=== PATIENT | female | born 1970 | race Caucasian/White ===

== ENCOUNTER 2019-03-13 15:49 | Inpatient (IN) | payer OTHER ==
[~2019-03-13] VITALS: Ht 157.5 cm; Wt 65.8 kg
[2019-03-27] MEDS ORDERED: SYNTHROID112 MCG PO (10:26)
[2019-03-27 11:05] LABS: BASOPHILS 0.2 % (0-2); EOSINOPHILS 1.7 % (0-7); HEMATOCRIT 42.4 % (36.0-48.0); HEMOGLOBIN 14.2 g/dL (12-16); IMMATURE GRANULOCYTES 0.2 % (0-5); LYMPHOCYTES 29.9 % (15-50); MCH 32.6 pg (26.0-34.0); MCHC 33.5 g/dL (31.0-37.0); MCV 97.2 fL (80.0-100.0); MEAN PLATELET VOLUME 9.8 fL (7.4-10.4); MONOCYTES 5.7 % (2-11); NEUTROPHILS 62.3 % (40-80); PLATELET COUNT 395 10x3/uL (130-400); RBC 4.36 10x6/uL (4.00-5.40); RDW 14.8 % (11.5-14.5); WBC 9.9 10x3/uL (4.8-10.8)
[2019-03-27 11:13] LABS: ANION GAP 10.4 mmol/L (8-16); CALCIUM 9.4 mg/dL (8.5-10.1); CARBON DIOXIDE 29.5 mmol/L (21.0-32.0); CREATININE - SERUM 0.9 mg/dL (0.6-1.3); POTASSIUM - SERUM 3.9 mmol/L (3.5-5.1)
[2019-03-28 07:42] VITALS: BP 168/100; BMI 25.3
--- NOTE | 2019-03-28 13:15 | NUR ---
1300 SPB >190 DR BARLOW NOTIFIED. ORDERS RECIEVED FOR PHENERGAN TO AID IN PAIN CONTROL
[2019-03-28 13:40] VITALS: BP 188/88
--- NOTE | 2019-03-28 13:42 | NUR ---
RECEIVED PATIENT FROM RECOVERY. SLIGHTLY DROWSY, RESPONDS TO VERBAL STIMULI. NO C/O PAIN. NO S/S OF ACUTE DISTRESS NOTED. MIDLINE INCISION, DRESSING C/D/I. IV TO RIGHT AC, SL. SITE PATENT WITHOUT REDNESS OR SWELLING. DENIES ANY NEEDS AT THIS TIME. CALL LIGHT IN REACH. WILL CONTINUE TO MONITOR.
[2019-03-28 16:53] VITALS: BP 182/93
--- NOTE | 2019-03-28 18:19 | NUR ---
ALERT AND ORIENTED, SITTING UP IN BED. NO C/O PAIN, DILAUDID DAMASCENER MANAGING PAIN AT THIS TIME. NO S/S OF ACUTE DISTRESS NOTED. DENIES ANY NEEDS AT THIS TIME. FAMILY AT BEDSIDE. CALL LIGHT IN REACH. WILL CONTINUE TO MONITOR.
[2019-03-28 19:15] VITALS: BP 188/88; BMI 26.6
[2019-03-28 20:48] VITALS: BP 128/87
--- NOTE | 2019-03-28 20:50 | NUR ---
A&O X 4. MIDLINE ABDOMINAL INCISION C/D/I. LAP SITE TO UPPER AND LOWER RIGHT SIDE OF ABDOMEN C/D/I. REPORTS ELEVATED PAIN AT THIS TIME. SHANKAR CATHETER IN PLACE WITH CLEAR YELLOW URINE. PT WOULD LIKE IT NOTED THAT ALL TIMES IN THE PAST THAT SHE HAD A CATHETER, SHE DID HAVE DIFFICULTY URINATING AFTERWORDS. WILL PASS IN REPORT. DENIES FURTHER NEEDS AT THIS TIME, WILL CONTINUE TO MONITOR.
[2019-03-29 00:59] VITALS: BP 140/81
--- NOTE | 2019-03-29 03:57 | NUR ---
I have reviewed this patient and I concur with the Shift Assessment completed by the Licensed Practical Nurse today this shift.
[2019-03-29 05:12] VITALS: BP 152/88
[2019-03-29 06:12] LABS: BASOPHILS 0.1 % (0-2); EOSINOPHILS 0.2 % (0-7); HEMATOCRIT 35.9 % (36.0-48.0); IMMATURE GRANULOCYTES 0.2 % (0-5); LYMPHOCYTES 23.6 % (15-50); MCH 31.2 pg (26.0-34.0); MCHC 31.5 g/dL (31.0-37.0); MEAN PLATELET VOLUME 10.1 fL (7.4-10.4); MONOCYTES 13.3 % (2-11); NEUTROPHILS 62.6 % (40-80); PLATELET COUNT 384 10x3/uL (130-400); RBC 3.62 10x6/uL (4.00-5.40); WBC 9.5 10x3/uL (4.8-10.8)
[2019-03-29 06:30] LABS: CALC OSMOLALITY 281 mosm/kg (275-300); CALCIUM 8.4 mg/dL (8.5-10.1); CARBON DIOXIDE 30.3 mmol/L (21.0-32.0); CHLORIDE - SERUM 108 mmol/L (98-107); CREATININE - SERUM 0.8 mg/dL (0.6-1.3); GLUCOSE 117 mg/dL (74-106); POTASSIUM - SERUM 3.5 mmol/L (3.5-5.1); SODIUM 142 mmol/L (136-145); UREA NITROGEN 8 mg/dL (7-18); eGFR NON AFRICAN AMERICAN 81 mL/min (90-120)
[2019-03-29 07:00] LABS: HEMOGLOBIN 11.3 g/dL (12-16); MCV 99.2 fL (80.0-100.0)
--- NOTE | 2019-03-29 08:00 | NUR ---
ASSESSMENT PER FLOW SHEET. PT IS WITHOUT DISTRESS.MONITOR FOR NEEDS.
[2019-03-29 08:37] VITALS: BP 142/87
[2019-03-29 11:59] VITALS: BP 124/76
[2019-03-29 12:46] VITALS: Ht 157.5 cm; Wt 65.8 kg
--- NOTE | 2019-03-29 13:05 | NUR ---
SHANKAR CATHETER DC ORDERED, CATH TIP INTACT. 450CC OF CAMI COLORED URINE EMPTIED FROM SHANKAR BAG.PT TOLERATED WELL
[2019-03-29 16:23] VITALS: BP 155/87
--- NOTE | 2019-03-29 18:16 | NUR ---
PT HAS VOIDED SMALL AMOUNT OF URINE IN COMMODE. HAT PLACED TO MEASURE.
--- NOTE | 2019-03-29 18:35 | NUR ---
REMAINS WITHOUT NEEDS,WITHOUT CHANGE.CONT PLAN OF CARE
[2019-03-29 21:12] VITALS: BP 139/73
--- NOTE | 2019-03-30 00:30 | NUR ---
A&O X 4. PT REPORTS DIFFICULTY URINATING AND PRESSURE PAIN TO BLADDER. BLADDER SCAN READS 387ML. IN&OUT CATH PERFORMED BY RN, 500ML CLEAR YELLOW URINE EMPTIED. PT REPORTS SOME RELIEF. INFORMED OF NEED TO VOID WITHIN 6-8 HOURS AND NOT TO STRAIN WHILE TOILETING. PT VERBALIZED UNDERSTANDING.
[2019-03-30 01:47] VITALS: BP 151/86
--- NOTE | 2019-03-30 02:41 | NUR ---
I have reviewed this patient and I concur with the Shift Assessment completed by the Licensed Practical Nurse today this shift.
[2019-03-30 06:22] VITALS: BP 126/67
[2019-03-30 06:48] LABS: CALC OSMOLALITY 276 mosm/kg (275-300); CALCIUM 8.2 mg/dL (8.5-10.1); CARBON DIOXIDE 24.6 mmol/L (21.0-32.0); CHLORIDE - SERUM 107 mmol/L (98-107); CREATININE - SERUM 0.7 mg/dL (0.6-1.3); POTASSIUM - SERUM 3.5 mmol/L (3.5-5.1); SODIUM 141 mmol/L (136-145); UREA NITROGEN 7 mg/dL (7-18); eGFR NON AFRICAN AMERICAN > 90 mL/min (90-120)
[2019-03-30 06:50] LABS: BASOPHILS 0.2 % (0-2); EOSINOPHILS 2.9 % (0-7); IMMATURE GRANULOCYTES 0.2 % (0-5); MCH 31.5 pg (26.0-34.0); MCHC 31.7 g/dL (31.0-37.0); MCV 99.3 fL (80.0-100.0); MEAN PLATELET VOLUME 10.1 fL (7.4-10.4); MONOCYTES 11.3 % (2-11); NEUTROPHILS 67.4 % (40-80); RDW 14.7 % (11.5-14.5); WBC 10.5 10x3/uL (4.8-10.8)
[2019-03-30 06:52] LABS: HEMATOCRIT 28.4 % (36.0-48.0); PLATELET COUNT 275 10x3/uL (130-400); RBC 2.86 10x6/uL (4.00-5.40)
[2019-03-30 06:54] LABS: GLUCOSE 62 mg/dL (74-106)
[2019-03-30 08:42] VITALS: BP 146/74
--- NOTE | 2019-03-30 11:07 | NUR ---
AMBULATING IN HALLS WITHOUT DISTRESS.
[2019-03-30 13:23] VITALS: BP 150/82
--- NOTE | 2019-03-30 14:53 | MORECARE ---
CASE MANAGEMENT DISCHARGE SUMMARY PATIENT: KIMBERLEY WEISS UNIT: [id number] ADM DATE: 03/28/19 AGE: 48 : 71 SEX: F ROOM/BED: D.2226 AUTHOR: FRANKLIN SHAFFER PHYSICIAN: REFERRING PHYSICIAN: PEDRO ROCHA MD DATE OF SERVICE: 03/30/19 Discharge Plan Patient Name: KIMBERLEY WEISS [facility] [facility] 1970 Planned Disposition: Home Anticipated Discharge Date: 03/31/19 Discharge Date: Expected LOS: 3 Initial Reviewer: [email or web address] Initial Review Date: 03/30/2019 Generated: 03/30/19 3:52 pm DCPIA - Discharge Planning Initial Assessment Updated by [email or web address]: Estefania Lindsey on 03/30/19 2:52 pm * Is the patient Alert and Oriented? Yes * How many steps to enter\exit or inside your home? 5-6/0 * PCP Dr. Brown in [place] * Preadmission Environment Home with Family * ADLs Independent * Equipment None * List name and contact numbers for known caregivers / representatives who currently or will assist patient after discharge: Fareed Weiss - spouse - [phone] * Verbal permission to speak to the caregivers and representatives has been obtained from the patient. Yes * Community resources currently utilized None * Additional services required to return to the preadmission environment? No * Can the patient safely return to the preadmission environment? Yes * Has this patient been hospitalized within the prior 30 days at any hospital? No Patient Name: KIMBERLEY WEISS Page [phone] at 1453 All edits/amendments must be made on the electronic document DICTATION DATE: 03/30/191452 SURGICAL NURSE: ANNA 03/30/191452 RPT#: [id number] DC DATE: STATUS: ADM IN [facility] [address] [place] [address] END OF REPORT
--- NOTE | 2019-03-30 15:00 | MORECARE ---
CASE MANAGEMENT DISCHARGE SUMMARY PATIENT: KIMBERLEY WEISS UNIT: [id number] ADM DATE: 03/28/19 AGE: 48 : 71 SEX: F ROOM/BED: D.2226 AUTHOR: FRANKLIN SHAFFER PHYSICIAN: REFERRING PHYSICIAN: PEDRO ROCHA MD DATE OF SERVICE: 03/30/19 Discharge Plan Patient Name: KIMBERLEY WEISS Facility: [facility]:[place] : 1970 Planned Disposition: Home Anticipated Discharge Date: 03/31/19 Discharge Date: Expected LOS: 3 Initial Reviewer: [email or web address] Initial Review Date: 03/30/2019 Generated: 03/30/19 4:00 pm Comments DCP- Discharge Planning Updated by [email or web address]: Estefania Lindsey on 03/30/19 1:[address] Patient Name: KIMBERLEY WEISS Admission Status: Elective Accout number: [id number] Admission Date: 03-28-2019 : 1970 Admission Diagnosis: Attending: PEDRO ROCHA Current LOS: 2 Anticipated DC Date: 03-31-2019 Planned Disposition: Home [facility] Discharge Planning Comments: CM met with patient to complete initial dc planning assessment. CM educated patient on the CM role and verbal consent given by patient to complete assessment. Patient lives at home with her spouse and 22 year old daughter and 20 year old son. At discharge patient plans to return and feels this is a safe discharge. She states her mother in law also lives close by and will be assisting her at home. CM discussed availability of home health, rehab services, and medical equipment. Patient denied known discharge needs at this time. States her will drive her home on discharge. CM will continue to follow and will assist as needed with dc plans/needs. Geometry Tutor: Estefania Lindsey DCPIA - Discharge Planning Initial Assessment Updated by [email or web address]: Estefania Lindsey on 03/30/19 2:52 pm * Is the patient Alert and Oriented? Yes * How many steps to enter\exit or inside your home? 5-6/0 * PCP Dr. Brown in [place] * Preadmission Environment Home with Family * ADLs Independent * Equipment None * List name and contact numbers for known caregivers / representatives who currently or will assist patient after discharge: Fareed Weiss - spouse - [phone] * Verbal permission to speak to the caregivers and representatives has been obtained from the patient. Yes * Community resources currently utilized None * Additional services required to return to the preadmission environment? No * Can the patient safely return to the preadmission environment? Yes * Has this patient been hospitalized within the prior 30 days at any hospital? No Last DP export: 03/30/19 1:53 Patient Name: KIMBERLEY WEISS Page 66611 at 1500 All edits/amendments must be made on the electronic document DICTATION DATE: 03/30/191499 WALNUT DEHYDRATOR OPERATOR: ANNA 03/30/191499 RPT#: [id number] DC DATE: STATUS: ADM IN [facility] [address] [place] [address] END OF REPORT
[2019-03-30 16:45] VITALS: BP 150/80
--- NOTE | 2019-03-30 19:19 | NUR ---
HAS AMBULATED MULTIPLE LAPS IN [place] TODAY. TOLERTING CLD WITHOUT NAUSE.SHE IS WITHOUT CHANGE FROM INTITIAL SHIFT ASSESSMENT.CONT PLAN OF CARE
[2019-03-30 21:23] VITALS: BP 140/74
--- NOTE | 2019-03-30 23:09 | NUR ---
A/O WITH NO SIGNS OF ACUTE DISTRESS. IV TO THE RT AC WITH NO REDNESS OR SWELLING. PT REPORTS THAT SHE HAD A YELLOW LIQUID BM. REPORTS THAT SHE IS TOLERATING LIQUID DIET. DENIES NEEDS AT THIS TIME. CONTINUE PLAN OF CARE.
[2019-03-31 01:02] VITALS: BP 133/59
[2019-03-31 05:08] VITALS: BP 124/70
[2019-03-31 05:10] LABS: BASOPHILS 0.1 % (0-2); EOSINOPHILS 4.9 % (0-7); HEMATOCRIT 23.1 % (36.0-48.0); HEMOGLOBIN 7.8 g/dL (12-16); IMMATURE GRANULOCYTES 0.3 % (0-5); LYMPHOCYTES 24.6 % (15-50); MCH 32.8 pg (26.0-34.0); MCHC 33.8 g/dL (31.0-37.0); MEAN PLATELET VOLUME 9.9 fL (7.4-10.4); MONOCYTES 10.7 % (2-11); NEUTROPHILS 59.4 % (40-80); PLATELET COUNT 234 10x3/uL (130-400); RBC 2.38 10x6/uL (4.00-5.40); RDW 14.6 % (11.5-14.5)
[2019-03-31 05:17] LABS: WBC 7.1 10x3/uL (4.8-10.8)
[2019-03-31 05:18] LABS: MCV 97.1 fL (80.0-100.0)
[2019-03-31 05:33] LABS: CALC OSMOLALITY 276 mosm/kg (275-300); CALCIUM 7.9 mg/dL (8.5-10.1); CARBON DIOXIDE 26.4 mmol/L (21.0-32.0); CHLORIDE - SERUM 110 mmol/L (98-107); CREATININE - SERUM 0.7 mg/dL (0.6-1.3); GLUCOSE 81 mg/dL (74-106); POTASSIUM - SERUM 3.1 mmol/L (3.5-5.1); SODIUM 141 mmol/L (136-145); eGFR NON AFRICAN AMERICAN > 90 mL/min (90-120)
[2019-03-31 05:39] LABS: UREA NITROGEN 3 mg/dL (7-18)
--- NOTE | 2019-03-31 07:30 | NUR ---
AWAKE AND ALERT. ORIENTED X3. NO C/O AT THIS TIME. LUNGS ARE CLEAR BILATERALLY, NO COUGH NOTED. SKIN IS INTACT WITHOUT REDNESS, EXCEPT MID ABDOMINAL INCISION AND 2 LAP SITES WHICH ARE CLEAN AND DRY WITHOUT SIGNS OF INFECTION. IV TO RIGHT AC IS SWOLLEN. D/C WITH CATHETER INTACT. RESITED TO LEFT WRIST AFTER 3 ATTEMPTS WITH 20G. AMBULATED 250 FEET IN HALLWAY THIS AM. DENIES NEEDS.
--- NOTE | 2019-03-31 07:51 | NUR ---
20 gauge IV STARTED IN THE LEFT WRIST X 1 STICK. + FLASH, FLUSHED WITH NS WITHOUT ANY DIFFICULTY SECURED WITH TEGADERM AND TAPE. SWAB CAP ON. WAYLON GIRON NOTIFIED
[2019-03-31 07:59] VITALS: BP 155/96
[2019-03-31 11:35] VITALS: BP 141/79
[2019-03-31] MEDS ORDERED: DILAUDID2 MG PO (13:17)
[2019-03-31 13:42] LABS: HEMOGLOBIN 9.2 g/dL (12-16)
[2019-03-31 13:43] LABS: HEMATOCRIT 27.9 % (36.0-48.0)
--- NOTE | 2019-03-31 16:30 | NUR ---
DR ROCHA CALLED AND SAID PATIENT COULD GO HOME.
--- NOTE | 2019-03-31 16:51 | MORECARE ---
CASE MANAGEMENT DISCHARGE SUMMARY PATIENT: KIMBERLEY WEISS UNIT: [id number] ADM DATE: 03/28/19 AGE: 48 : 72 SEX: F ROOM/BED: D.2226 AUTHOR: FRANKLIN SHAFFER PHYSICIAN: REFERRING PHYSICIAN: PEDRO ROCHA MD DATE OF SERVICE: 03/31/19 Discharge Plan Patient Name: KIMBERLEY WEISS Facility: [facility]:[place] : 1970 Planned Disposition: Home Anticipated Discharge Date: 03/31/19 Discharge Date: Expected LOS: 3 Initial Reviewer: [email or web address] Initial Review Date: 03/30/2019 Generated: 03/31/19 5:50 pm Comments DCP- Discharge Planning Updated by [email or web address]: Estefania Lindsey on 03/31/19 3:[address] Patient Name: KIMBERLEY WEISS Encounter No: [id number] : 1970 Primary Insurance: [facility] [employer] Anticipated DC Date: 03-31-2019 Planned Disposition: Home External Planned Provider: : DCP follow-up note: Patient and family in agreement with discharge plan. No changes to plan. Case management will follow and assist as needed. Estefania Lindsey DCP- Discharge Planning Updated by [email or web address]: Estefania Lindsey on 03/30/19 1:[address] Patient Name: KIMBERLEY WEISS Admission Status: Elective Accout number: [id number] Admission Date: 03-28-2019 : 1970 Admission Diagnosis: Attending: PEDRO ROCHA Current LOS: 2 Anticipated DC Date: 03-31-2019 Planned Disposition: Home Primary Insurance: [facility] [facility] Discharge Planning Comments: CM met with patient to complete initial dc planning assessment. CM educated patient on the CM role and verbal consent given by patient to complete assessment. Patient lives at home with her spouse and 22 year old daughter and 20 year old son. At discharge patient plans to return and feels this is a safe discharge. She states her mother in law also lives close by and will be assisting her at home. CM discussed availability of home health, rehab services, and medical equipment. Patient denied known discharge needs at this time. States her will drive her home on discharge. CM will continue to follow and will assist as needed with dc plans/needs. Entry Level Manager: Estefania Rosalia DCPIA - Discharge Planning Initial Assessment Updated by [email or web address]: Estefania Lindsey on 03/30/19 2:52 pm * Is the patient Alert and Oriented? Yes * How many steps to enter\exit or inside your home? 5-6/0 * PCP Dr. Brown in [place] * Preadmission Environment Home with Family * ADLs Independent * Equipment None * List name and contact numbers for known caregivers / representatives who currently or will assist patient after discharge: Fareed Weiss - spouse - [phone] * Verbal permission to speak to the caregivers and representatives has been obtained from the patient. Yes * Community resources currently utilized None * Additional services required to return to the preadmission environment? No * Can the patient safely return to the preadmission environment? Yes * Has this patient been hospitalized within the prior 30 days at any hospital? No Last DP export: 03/30/19 2:00 Patient Name: KIMBERLEY WEISS Page [phone] at 1651 All edits/amendments must be made on the electronic document DICTATION DATE: 03/31/191649 WINDOWS INFRASTRUCTURE ENGINEER: ANNA 03/31/191649 RPT#: [id number] DC DATE: STATUS: ADM IN [facility] [address] [place] [address] END OF REPORT
--- NOTE | 2019-03-31 17:00 | NUR ---
REQUESTED AND GIVEN ONE DILAUDID PO FOR C/O ABDOMINAL PAIN LEVEL 7 FOR THE TRIP HOME. DISCHARGE INSTRUCTIONS GIVEN BOTH VERBALLY AND WRITTEN. ALL QUESTIONS ANSWERED. PATIENT AND VERBALIZED UNDERSTANDING OF SAME. NEEDED PRESCRIPTIONS GIVEN TO PATIENT. SL TO LEFT WRIST D/C WITH CATHETER INTACT. ALL BELONGINGS WITH PATIENT.
--- NOTE | 2019-04-01 15:25 | MORECARE ---
CASE MANAGEMENT DISCHARGE SUMMARY PATIENT: KIMBERLEY WEISS UNIT: [id number] ADM DATE: 03/28/19 AGE: 48 : 72 SEX: F ROOM/BED: D.2226 AUTHOR: FRANKLIN SHAFFER PHYSICIAN: REFERRING PHYSICIAN: PEDRO ROCHA MD DATE OF SERVICE: 04/01/19 Discharge Plan Patient Name: KIMBERLEY WEISS Facility: [facility]:[place] : 1970 Planned Disposition: Home Anticipated Discharge Date: 03/31/19 Discharge Date: 03/31/2019 Expected LOS: 3 Initial Reviewer: [email or web address] Initial Review Date: 03/30/2019 Generated: 04/01/19 4:25 pm Comments DCP- Discharge Planning Updated by [email or web address]: Estefania Lindsey on 03/31/19 3:[address] Patient Name: KIMBERLEY WEISS Encounter No: [id number] : 1970 Primary Insurance: [facility] [employer] Anticipated DC Date: 03-31-2019 Planned Disposition: Home External Planned Provider: : DCP follow-up note: Patient and family in agreement with discharge plan. No changes to plan. Case management will follow and assist as needed. Estefania Rosalia DCP- Discharge Planning Updated by [email or web address]: Estefania Lindsey on 03/30/19 1:[address] Patient Name: KIMBERLEY WEISS Admission Status: Elective Accout number: [id number] Admission Date: 03-28-2019 : 1970 Admission Diagnosis: Attending: PEDRO ROCHA Current LOS: 2 Anticipated DC Date: 03-31-2019 Planned Disposition: Home Primary Insurance: [employer] Discharge Planning Comments: CM met with patient to complete initial dc planning assessment. CM educated patient on the CM role and verbal consent given by patient to complete assessment. Patient lives at home with her spouse and 22 year old daughter and 20 year old son. At discharge patient plans to return and feels this is a safe discharge. She states her mother in law also lives close by and will be assisting her at home. CM discussed availability of home health, rehab services, and medical equipment. Patient denied known discharge needs at this time. States her will drive her home on discharge. CM will continue to follow and will assist as needed with dc plans/needs. Tie Fastener: Estefania Lindsey DCPIA - Discharge Planning Initial Assessment Updated by [email or web address]: Estefania Lindsey on 03/30/19 2:52 pm * Is the patient Alert and Oriented? Yes * How many steps to enter\exit or inside your home? 5-6/0 * PCP Dr. Brown in [place] * Preadmission Environment Home with Family * ADLs Independent * Equipment None * List name and contact numbers for known caregivers / representatives who currently or will assist patient after discharge: Fareed Weiss - spouse - [phone] * Verbal permission to speak to the caregivers and representatives has been obtained from the patient. Yes * Community resources currently utilized None * Additional services required to return to the preadmission environment? No * Can the patient safely return to the preadmission environment? Yes * Has this patient been hospitalized within the prior 30 days at any hospital? No Last DP export: 03/31/19 3:51 Patient Name: KIMBERLEY WEISS Page [phone] at 1525 All edits/amendments must be made on the electronic document DICTATION DATE: 04/01/191524 [employer] UNIT FEEDER: ANNA 04/01/191524 RPT#: [id number] DC DATE:03/31/19 STATUS: DIS IN [facility] [address] [place] [address] END OF REPORT
--- NOTE | 2019-04-11 13:37 | OP ---
PATIENT NAME: KIMBERLEY TREJO MEDICAL RECORD: [id number] :72 LOCATION:[id number] ADMISSION DATE:03/28/19 SURGEON: PERRY ROCHA MD DATE OF OPERATION: 03/28/2019 PREOPERATIVE DIAGNOSES: 1. Recurrent diverticulitis. 2. Hyperthyroidism. POSTOPERATIVE DIAGNOSES: 1. Recurrent diverticulitis. 2. Hyperthyroidism. PROCEDURE: Hand-assisted laparoscopic sigmoid colectomy. SURGEON: Perry Rocha MD REPORT OF PROCEDURE: The patient's abdomen was prepped and draped in sterile fashion. A skin incision was made in the midline just above the pubic bone. Electrocautery was used to dissect through the subcutaneous tissues and we entered the abdominal cavity. Once inside, I took down some adhesions of the omentum to the anterior abdominal wall and then inserted a Gelport with a 5-mm trocar within it. With this in place, we were able to place a 5-mm trocar in the right lateral abdomen and a 12-mm trocar just anterior to the right anterior superior iliac crest. The patient had some inflammatory changes present that appeared to be chronic in nature, mainly in the rectosigmoid junction. We began our dissection by taking down these adhesions mainly on the left side of the pelvis and began to rotate that bowel superiorly and out of the pelvis. We then extended our dissection up the left side of the patient's colon, and eventually mobilizing the splenic flexure. As we were able to mobilize this colon medially by taking down the white line of Toldt, we were able to grasp this colon extended superiorly and take down any adhesions down in the pelvis. Once we did this, we were able to pass a conglomerate of really inflamed chronic type tissue of the proximal rectum and distal sigmoid colon. Once we got distal to this, the rectum appeared to be normal. We made a window at the base of the mesorectum and was able to transect the proximal rectum with a 60 blue load Endo-AUREA stapler. The mesentery was then taken down with sequential fires of a 60 white load Endo-AUREA stapler. We could see the patient's left ureter and it was not compromised during this case. We then eviscerated this section of the sigmoid and proximal rectum through the wound protector. We took down the mesentery with sequential clamp and tie technique with 3-0 silks. The colon was then transected on the proximal sigmoid using electrocautery and the sigmoid colon was sent off for permanent specimen. We then placed a 2-0 Prolene in a pursestring fashion on the distal open colon and inserted the 29 EEA anvil into the colon. The pursestring was tied down tightly and these were all placed back into the abdominal cavity. Under direct visualization, we were able to pass the multiple anal dilators through the distal rectum and eventually the 29 EEA stapler. We performed an end-to-end anastomosis under direct visualization. At the conclusion of this, we had 2 complete rings of tissue present in the stapler and we checked the anastomotic line under water by instilling air in the rectum. There was no sign of any anastomotic leak present. We then oversewed the staple line anteriorly using interrupted 3-0 silks in a Lembert fashion. We then irrigated out the pelvis and assured there was no sign of any bleeding or enteric leak, which there appeared to be none. The 12-mm trocar site fascia was then closed with an 0 Vicryl using a Cody-Sachin suture passer device. The OPERATIVE REPORT [id number] KIMBERLEY TREJO C ports and insufflation were then removed. The midline fascia was closed with running #1 loop PDS times 2. The subcutaneous tissues were irrigated out and then reapproximated with interrupted 3-0 Vicryl and the skin incisions were closed with toby. COMPLICATIONS: None. CONDITION: Stable. ANESTHESIA: General endotracheal. BLOOD LOSS: Minimal. TRANSINT:[id number] Voice Confirmation ID: [id number] DOCUMENT ID: [id number] cc: Mindy Monterroso, PERRY ROCHA MD at 1337 CC: MINDY MONTERROSO [id number] DICTATION DATE: 03/28/19 1227 HOSPITALIST PHYSICIAN: 03/28/19 1243 DIS IN 03/31/19 [facility] [address] [place] [address]
== END 2019-03-31 17:00 | disposition home or self-care (01) | DRG 330 ==
LOC: D.SDCHOLD 03-28 07:14 → D.MS 03-28 07:14 → D.SDCHOLD 03-28 09:15 → D.MS 03-28 13:23
PROVIDERS: ADMIT Surgery; ATTEND Surgery
PROC: 0DTN0ZZ Resection of Sigmoid Colon, Open Approach (ICD-10-PCS; principal; 2019-03-28 09:15)
DX: K57.32 Diverticulitis of large intestine without perforation or abscess without bleeding (principal); D62 Acute posthemorrhagic anemia; I10 Essential (primary) hypertension; E05.90 Thyrotoxicosis, unspecified without thyrotoxic crisis or storm

== ENCOUNTER 2019-04-08 15:48 | Inpatient (IN) | payer OTHER ==
[~2019-04-08] VITALS: Ht 157.5 cm; Wt 62.6 kg
--- NOTE | ~2019-04-08 | HEMODYNAMI ---
PATIENT:KIMBERLEY TREJO MEDICAL RECORD: [id number] : [birth year] [facility]ATION:[facility].2224 ADMISSION DATE: 04/08/19 Generatedon:04/11/201917:57 Patient name: KIMBERLEY TREJO Patient #: [id number] SSN: D OB: 1970 Date of study: 04/11/2019 Page: Of Hemodynamic Procedure Report Patient Data Patient Demographics Procedure consent was obtained First Name: KIMBERLEY Gender: Female Last Name: NEIL : 1970 Middle Initial: C Age: 48 year(s) Patient #: [id number] Race: Unknown Additional ID: [id number] Contact details [address]: [address] [place] [address] State: [place] City: [place] Zip code: [address] Past Medical History Allergies Allergen Reaction Date Comments Reported Iodine 04/11/2019 Admission Admission Data Admission Date: 04/08/2019 Admission Time: 19:27 Room #: D.2224 Height (in.): 62 BSA: 1.63 (m2) Height (cm.): 157.48 BMI: 25.24 (kg/m2) Weight (lbs.): 138 Weight (kg.): 62.6 Procedure Procedure Types Cath Procedure Peripheral Cath Diagnostic Procedure Hot Box Spotter Peripheral Procedures Abscess Abscessogram Procedure Description Procedure Date Procedure Date: 04/11/2019 Procedure Start Time: 17:48 Procedure Staff Name Function Wily Suh MD Performing Physician Lorelei Suarez RT Manager Field Sales Mary Rico RN Nurse SHASHI ZHU RT Scrub Procedure Data Cath Procedure Fluoroscopy Diagnostic fluoroscopy Total fluoroscopy Time: 0.8 time: 0.8 min min Diagnostic fluoroscopy Total fluoroscopy dose: 37 dose: 37 mGy mGy Contrast Material Contrast Material Type Amount (ml) Isovue 300 10 Hemodynamics Rest BSA: 1.63 (m2) O2 Consumption: Estimated: 169 (ml/min) O2 Consumption indexed: Estimated:103.68 (ml/min/m) Heart Rate: 83 (bpm) Snapshots Pre Cath Intra NCS Post Cath Vital Signs Time Heart Resp SPO2 etCO2 NIBP (mmHg) Rhythm Pain Sedation Rate (ipm) (%) (mmHg) Status Level (bpm) 17:47:43 76 7 98 0 162/96(145) NSR 0 (11) 10(A) , No pain 17:52:08 70 14 97 0 160/88(135) NSR 0 (11) 10(A) , No pain 17:56:26 71 22 97 0 160/95(133) NSR 0 (11) 10(A) , No pain Procedure Log Time Note 17:38:47 Patient Height : 62 inches 17:39:03 Patient Weight : 138 lbs 17:39:57 Time tracking: Regular hours (M-F 7:00 - 5:00) 17:46:16 Plan of Care:Hemodynamics will remain stable., Cardiac rhythm will remain stable., Comfort level will be maintained., Respiratory function will remain adequate., Patient/ family verbilizes understanding of procedure., Procedure tolerated without complication., Recovers from procedure without complications.. 17:46:22 Patient received from Med/Surg to IR Alert and oriented. Tansferred to table in Supine position. 17:46:25 Signed procedure consent form obtained from patient. 17:46:27 ECG and BP/O2 sat monitors applied to patient. 17:46:28 Vital chart was started 17:46:29 Baseline sample Acquired. 17:46:30 Full Disclosure recording started 17:46:31 - 17:46:36 H&P Date Dictated: 04/11/2019 Within 30 days and on chart.. 17:46:38 Pre-procedure instructions explained to patient. 17:46:39 Pre-procedure instructions explained to patient. 17:46:41 Pre-op teaching completed and patient verbalized understanding. 17:46:45 Family unavailable. 17:46:49 Patient NPO since Lunch. 17:46:55 Patient allergic to Iodine 17:46:58 Is the patient allergic to Iodine/contrast media? Yes. 17:47:01 Was the patient premedicated? Yes 17:47:04 - 17:47:20 IV patent on arrival in left forearm with D5/.45%NaCl at KVO. 17:47:32 Left abdomen area was prepped with chlora-prep and draped in sterile fashion 17:47:34 - 17:47:38 Physician arrived 17:47:39 --------ALL STOP TIME OUT------ 17:47:40 Final Timeout: patient, procedure, and site verified with staff and physician. All members of the team are in agreement. 17:48:09 Procedure started. 17:53:04 BAG, DRAINAGE EMPTY 600ML W/ANKITA ([id number]) opened to sterile field. 17:53:34 Use device set IR Diagnostic 17:53:36 Tegaderm 4 x 4 ([id number]) opened to sterile field. 17:53:37 Sterile Angiographic Pack opened to sterile field. 17:53:38 Bag Decanter () opened to sterile field. 17:54:34 10cc's injected into abscess determined to leave in for 2-3 more days 17:55:16 Procedure ended.(Physican Out) 17:55:38 Fluoroscopy time 00.80 minutes. 17:55:42 Fluoroscopy dose: 37 mGy 17:55:42 Flurop Dose total: 37 17:55:48 Contrast amount:Isovue 300 10ml. 17:55:50 Procedure and supply charges have been captured, reviewed, submitted an d are correct. 17:56:51 Report given to Med/Surg. 17:57:05 Vital chart was stopped Device Usage Item Name Manufacture Quantity Catalog Hospital Part Current Minimal Lot# / Number Charge Number Stock Stock Serial# Code BAG, Merit 1 [id number] 5 DRAINAGE Medical EMPTY 600ML W/ANKITA ([id number]) Tegaderm 4 x 3M 1 [id number] 5 4 (1626W) Sterile Cardinal 1 [id number] 244339 5 Angiographic Health Pack Bag Decanter Microtek 1 2001S [id number] 5 () Medical Inc[employer] Signature Audit [place] Stage Time Signature Unsigned Intra-Procedure 04/11/2019 Lorelei Suarez 5:57:03 PM RT(R) [place] [id number] [place] [address]
[~2019-04-08 15:48] MED LIST: DILAUDID2 MG PO; SYNTHROID112 MCG PO
--- NOTE | 2019-04-08 16:15 | NUR ---
BLADDER SCAN DONE POST VOID. APPROX 35 ML IN BLADDER. EDP, BENIGNO, INFORMED.
--- NOTE | 2019-04-08 16:16 | NUR ---
URINE SPECIMEN COLLECTED; LABELED AT BEDSIDE WITH CORRECT IDENTIFIERS X 2 AND SENT TO LAB VIA TUBE SYSTEM.
[2019-04-08 16:30] LABS: APPEARANCE CLEAR (CLEAR); BILIRUBIN NEGATIVE (NEGATIVE); COLOR YELLOW (YELLOW); GLUCOSE NEGATIVE (NEGATIVE); KETONE NEGATIVE (NEGATIVE); NITRITE NEGATIVE (NEGATIVE); PROTEIN NEGATIVE (NEGATIVE); SPECIFIC GRAVITY 1.015 (1.005-1.020); UROBILINOGEN NORMAL (NORMAL)
[2019-04-08 16:33] LABS: BACTERIA MODERATE /hpf (NEGATIVE)
[2019-04-08 16:34] LABS: WHITE CELLS - URINE 0-5 /hpf (NEGATIVE)
[2019-04-08 18:00] VITALS: BP 131/77
[2019-04-08 18:14] LABS: BASOPHILS 0.1 % (0-2); EOSINOPHILS 1.8 % (0-7); HEMATOCRIT 32.3 % (36.0-48.0); HEMOGLOBIN 10.7 g/dL (12-16); IMMATURE GRANULOCYTES 0.4 % (0-5); MCH 31.9 pg (26.0-34.0); MCHC 33.1 g/dL (31.0-37.0); MCV 96.4 fL (80.0-100.0); MEAN PLATELET VOLUME 8.7 fL (7.4-10.4); MONOCYTES 6.8 % (2-11); NEUTROPHILS 80.9 % (40-80); RBC 3.35 10x6/uL (4.00-5.40); RDW 14.9 % (11.5-14.5); WBC 18.1 10x3/uL (4.8-10.8)
[2019-04-08 18:15] LABS: PLATELET COUNT 715 10x3/uL (130-400)
[2019-04-08 18:23] LABS: CALC OSMOLALITY 279 mosm/kg (275-300); CARBON DIOXIDE 31.3 mmol/L (21.0-32.0); CHLORIDE - SERUM 103 mmol/L (98-107); CREATININE - SERUM 0.8 mg/dL (0.6-1.3); GLUCOSE 116 mg/dL (74-106); POTASSIUM - SERUM 3.7 mmol/L (3.5-5.1); SODIUM 141 mmol/L (136-145); UREA NITROGEN 6 mg/dL (7-18); eGFR NON AFRICAN AMERICAN 81 mL/min (90-120)
[2019-04-08 18:29] LABS: ALBUMIN 2.8 g/dL (3.4-5.0); ALKALINE PHOSPHATASE 127 U/L (46-116); ALT (SGPT) 32 U/L (10-68); BILIRUBIN - TOTAL 0.74 mg/dL (0.2-1.3); PROTEIN - SERUM 6.6 g/dL (6.4-8.2)
--- NOTE | 2019-04-08 19:17 | NUR ---
PT ALERT. FAMILY AT BEDSIDE. IV INTACT AND INFUSING WITHOUT DIFFICULTY. PT S AWARE OF NPO STATUS.
[2019-04-08 20:00] VITALS: BP 125/62
--- NOTE | 2019-04-08 20:00 | NUR ---
RECEIVED TO ROOM VIA STRECHER FROM ER. ALERT,ORIETNED RESP EVEN AND UNALBORED. NO DISTRESS NOTED. IV TO LAC INTACT WITHOUT REDNESS OR EDEMA NOTED. ORIENTED TO ROOM. CL IN REACH.
[2019-04-08 22:04] VITALS: BP 125/62; BMI 25.3
[2019-04-09] VITALS (9 sets, daily range): BP systolic 110–139; BP diastolic 49–83
[2019-04-09 06:13] LABS: BASOPHILS 0.1 % (0-2); EOSINOPHILS 2.4 % (0-7); HEMATOCRIT 27.6 % (36.0-48.0); HEMOGLOBIN 8.9 g/dL (12-16); IMMATURE GRANULOCYTES 0.4 % (0-5); LYMPHOCYTES 10.6 % (15-50); MCH 31.1 pg (26.0-34.0); MCHC 32.2 g/dL (31.0-37.0); MCV 96.5 fL (80.0-100.0); MEAN PLATELET VOLUME 8.8 fL (7.4-10.4); MONOCYTES 9.4 % (2-11); NEUTROPHILS 77.1 % (40-80); PLATELET COUNT 594 10x3/uL (130-400); RBC 2.86 10x6/uL (4.00-5.40); RDW 14.9 % (11.5-14.5); WBC 14.8 10x3/uL (4.8-10.8)
[2019-04-09 06:30] LABS: ANION GAP 11.2 mmol/L (8-16); CALCIUM 8.1 mg/dL (8.5-10.1); MAGNESIUM - SERUM 1.9 mg/dL (1.8-2.4); PHOSPHOROUS 3.4 mg/dL (2.5-4.9); POTASSIUM - SERUM 3.2 mmol/L (3.5-5.1)
--- NOTE | 2019-04-09 06:55 | NUR ---
ALERT AND ORIENTED, RESTING IN BED. NO C/O PAIN. NO S/S OF ACUTE DISTRESS NOTED. IV TO LEFT AC, NS INFUSING @ 100ML/HR. SITE PATENT WITHOUT REDNESS OR SWELLING. DENIES ANY NEEDS AT THIS TIME. CALL LIGHT IN REACH. WILL CONTINUE TO MONITOR.
--- NOTE | 2019-04-09 09:23 | NUR ---
SLEEPING,WITHOUT SIGNS OF DISTRESS.
[2019-04-09 09:51] LABS: INR 1.27 (0.85-1.17); PROTIME 15.4 SECONDS (11.6-15.0)
[2019-04-09 09:52] LABS: APTT 42.1 SECONDS (22.8-39.4)
[2019-04-09 11:26] LABS: BASOPHILS 0.1 % (0-2); EOSINOPHILS 0.6 % (0-7); HEMATOCRIT 27.2 % (36.0-48.0); HEMOGLOBIN 8.9 g/dL (12-16); IMMATURE GRANULOCYTES 0.4 % (0-5); LYMPHOCYTES 9.7 % (15-50); MCH 31.4 pg (26.0-34.0); MCHC 32.7 g/dL (31.0-37.0); MCV 96.1 fL (80.0-100.0); MEAN PLATELET VOLUME 8.5 fL (7.4-10.4); MONOCYTES 7.6 % (2-11); NEUTROPHILS 81.6 % (40-80); PLATELET COUNT 542 10x3/uL (130-400); RBC 2.83 10x6/uL (4.00-5.40); RDW 14.8 % (11.5-14.5); WBC 14.2 10x3/uL (4.8-10.8)
[2019-04-09 11:38] LABS: CALC OSMOLALITY 282 mosm/kg (275-300); CALCIUM 7.9 mg/dL (8.5-10.1); CARBON DIOXIDE 26.6 mmol/L (21.0-32.0); CHLORIDE - SERUM 107 mmol/L (98-107); CREATININE - SERUM 0.8 mg/dL (0.6-1.3); GLUCOSE 103 mg/dL (74-106); POTASSIUM - SERUM 3.3 mmol/L (3.5-5.1); SODIUM 143 mmol/L (136-145); UREA NITROGEN 6 mg/dL (7-18); eGFR NON AFRICAN AMERICAN 81 mL/min (90-120)
--- NOTE | 2019-04-09 18:36 | NUR ---
ALERT AND ORIENTED, RESTING IN BED. NO C/O PAIN. NO S/S OF ACUTE DISTRESS NOTED. DRAIN TO LLQ, BLOODY DRAINAGE. FLUSHED WITH 10ML NORMAL SALINE. DENIES ANY NEEDS AT THIS TIME. CALL LIGHT IN REACH. WILL CONTINUE TO MONITOR.
--- NOTE | 2019-04-09 19:15 | NUR ---
BEDSIDE REPORT RECEIVED. PATIENT ALERT AND ORIENTED WITH HOB ELEVATED TO 30 DEGREE ANGLE. HAS LOWER LEFT QUADRANT MONTEZ DRAIN. BOWEL SOUNDS ACTIVE. PATIENT DRINKING WATER WITH NO ISSUES NOTED. LEFT AC IV THAT IS INFUSING NS @ 100. DENIES NEEDS AT THIS TIME. CALL LIGHT IN REACH. CPOC.
--- NOTE | 2019-04-09 21:30 | NUR ---
ADMINISTERED PAIN MEDICINE PER ORDER.
[2019-04-10 01:21] VITALS: BP 172/63
--- NOTE | 2019-04-10 02:00 | NUR ---
RESTING WITH NO S/SX OF DISTRESS AT THIS TIME. CALL LIGHT REMAINS IN REACH. CPOC.
--- NOTE | 2019-04-10 02:44 | NUR ---
I have reviewed this patient and I concur with the Shift Assessment completed by the Licensed Practical Nurse today this shift.
[2019-04-10 05:45] VITALS: BP 127/71
[2019-04-10 06:07] LABS: BASOPHILS 0.2 % (0-2); EOSINOPHILS 4.6 % (0-7); HEMATOCRIT 25.6 % (36.0-48.0); HEMOGLOBIN 8.1 g/dL (12-16); IMMATURE GRANULOCYTES 0.4 % (0-5); LYMPHOCYTES 16.4 % (15-50); MCH 31.2 pg (26.0-34.0); MCHC 31.6 g/dL (31.0-37.0); MEAN PLATELET VOLUME 8.8 fL (7.4-10.4); MONOCYTES 7.3 % (2-11); NEUTROPHILS 71.1 % (40-80); PLATELET COUNT 563 10x3/uL (130-400)
[2019-04-10 06:22] LABS: CALC OSMOLALITY 274 mosm/kg (275-300); CALCIUM 8.1 mg/dL (8.5-10.1); CARBON DIOXIDE 27.2 mmol/L (21.0-32.0); CHLORIDE - SERUM 107 mmol/L (98-107); CREATININE - SERUM 0.8 mg/dL (0.6-1.3); GLUCOSE 83 mg/dL (74-106); SODIUM 140 mmol/L (136-145); UREA NITROGEN 5 mg/dL (7-18); eGFR NON AFRICAN AMERICAN 81 mL/min (90-120)
[2019-04-10 06:31] LABS: MCV 98.5 fL (80.0-100.0); WBC 10.6 10x3/uL (4.8-10.8)
--- NOTE | 2019-04-10 07:55 | NUR ---
AWAKE AND ALERT. ORIENTED X3. C/O LEFT SIDE PAIN LEVEL 10. GIVEN 2MG MORPHINE SLOW IVP FOR SAME. WILL MONITOR. LUNGS ARE CLEAR BILATERALLY, NO COUGH NOTED. SKIN IS INTACT WITHOUT REDNESS EXCEPT INSERTION SITE TO MID LEFT BACK FOR DRAINAGE TUBE. THIS HAS A DRY INTACT DRESSING IN PLACE. THERE IS SEROUS SANGUINESS DRAINAGE NOTED TO SAME. IV TO LEFT AC IS PATENT WITHOUT REDNESS AT INSERTION SITE. DENIES NEEDS.
[2019-04-10 08:38] VITALS: BP 142/78
[2019-04-10 12:48] VITALS: BP 150/78
--- NOTE | 2019-04-10 13:15 | NUR ---
SITTING UP IN BED EATING FULL LIQUID LUNCH. REQUESTED AND GIVEN 2MG DILAUDID PO FOR C/O ABDOMINAL PAIN LEVEL 10. WILL MONITOR.
--- NOTE | 2019-04-10 14:00 | NUR ---
PATIENT ABLE TO FLUSH DRAIN PER SELF. ALL QUESTIONS ANSWERED. DENIES NEEDS.
[2019-04-10 16:43] VITALS: BP 149/74
--- NOTE | 2019-04-10 17:10 | NUR ---
REQUESTED AND GIVEN 2MG DILAUDID PO FOR C/O ABDOMINAL PAIN LEVEL 7. WILL MONITOR. FULL LIQUID TRAY SERVED IN ROOM. DENIES NEEDS. NO CHANGES NOTED.
--- NOTE | 2019-04-10 20:00 | NUR ---
ASSESSMENT PER FLOWSHEET. AWAKE ALERT ORIENTED. IV PATENT LEFT AC OF NS AT 30CC'S/HR. BILI DRAIN TO LEFT LOWER QUAD. WITH SERIOUS DRAINAGE.
[2019-04-10 20:20] VITALS: BP 142/87
--- NOTE | 2019-04-10 21:08 | NUR ---
REQUESTING PAIN MED. DILAUDID 2MG PO GIVEN FOR PAIN CONTROL.
--- NOTE | 2019-04-11 | NUR ---
EYES CLOSED RESPIRATIONS WITH ASE AND UNLABORED.
[2019-04-11 00:30] VITALS: BP 141/81
--- NOTE | 2019-04-11 03:32 | NUR ---
RESTING QUIETLY SR UP X2 CALL LIGHT WITHIN REACH.
[2019-04-11 05:00] VITALS: BP 151/72
[2019-04-11 05:31] LABS: BASOPHILS 0.4 % (0-2); EOSINOPHILS 5.5 % (0-7); HEMATOCRIT 29.2 % (36.0-48.0); HEMOGLOBIN 9.3 g/dL (12-16); IMMATURE GRANULOCYTES 0.5 % (0-5); LYMPHOCYTES 17.6 % (15-50); MCH 31.3 pg (26.0-34.0); MCHC 31.8 g/dL (31.0-37.0); MCV 98.3 fL (80.0-100.0); MEAN PLATELET VOLUME 8.7 fL (7.4-10.4); MONOCYTES 8.6 % (2-11); NEUTROPHILS 67.4 % (40-80); PLATELET COUNT 657 10x3/uL (130-400); RBC 2.97 10x6/uL (4.00-5.40); RDW 14.8 % (11.5-14.5); WBC 9.3 10x3/uL (4.8-10.8)
[2019-04-11 05:58] LABS: CALCIUM 8.4 mg/dL (8.5-10.1); CARBON DIOXIDE 30.9 mmol/L (21.0-32.0); CHLORIDE - SERUM 106 mmol/L (98-107); CREATININE - SERUM 0.8 mg/dL (0.6-1.3); GLUCOSE 92 mg/dL (74-106); SODIUM 143 mmol/L (136-145); eGFR NON AFRICAN AMERICAN 81 mL/min (90-120)
[2019-04-11 06:03] LABS: CALC OSMOLALITY 281 mosm/kg (275-300); POTASSIUM - SERUM 3.7 mmol/L (3.5-5.1); UREA NITROGEN 3 mg/dL (7-18)
[2019-04-11 08:05] VITALS: BP 140/58
--- NOTE | 2019-04-11 10:30 | NUR ---
CLIPS TO LOWER ABDOMEN D/C WITHOUT DIFFICULTY. INCISION IS CLEAN DRY AND WELL APPROXIMATED. TOLERATED WITHOUT COMPLAINTS.
[2019-04-11 12:27] VITALS: BP 140/84
--- NOTE | 2019-04-11 14:30 | NUR ---
REQUESTED AND GIVEN 2MG DILAUDID PO FOR C/O ABDOMINAL PAIN LEVEL 7. WILL MONITOR. PATIENT ABLE TO FLUSH AND EMPTY MAYTE DRAIN WITH SBA.
[2019-04-11 16:03] VITALS: BP 139/72
--- NOTE | 2019-04-11 16:45 | NUR ---
OFF UNIT VIA BED FOR PROCEDURE.
--- NOTE | 2019-04-11 18:00 | NUR ---
RETURNED FROM PROCEDURE. A/O X3. NO CHANGES NOTED. DENIES NEEDS. AT BEDSIDE.
--- NOTE | 2019-04-11 20:00 | NUR ---
ASSESSMENT PER FLOWSHEET. IV PATENT LEFT AC OF NS AT 30CC'S/HR VANCO MYCIN INFUSING. LOWER ABDOMINAL AREA INCISION C/D/I CLIPS HAVE BEEN REMOVED. BILI DRAIN IN PLACE WITH YELLOW/BROWN DRAINAGE NOTED. C/O PAIN DILAUDID 2MG PO GIVEN FOR PAIN CONTROL.
[2019-04-11 21:15] VITALS: BP 152/80
--- NOTE | 2019-04-11 23:00 | NUR ---
MEDS PER MAR. RESTING QUIETLY DENIES NEEDS SR UP X2 CALL LIGHT WITHIN REACH.
--- NOTE | 2019-04-12 01:00 | NUR ---
EYES CLOSED RESPIRATIONS WITH EASE AND UNLABORED.
[2019-04-12 01:04] VITALS: BP 117/66
--- NOTE | 2019-04-12 04:42 | NUR ---
RESTING QUIETLY DENIES NEEDS.
[2019-04-12 05:50] VITALS: BP 126/71
[2019-04-12 06:43] LABS: CALCIUM 8.5 mg/dL (8.5-10.1); CARBON DIOXIDE 28.2 mmol/L (21.0-32.0); CREATININE - SERUM 0.9 mg/dL (0.6-1.3); POTASSIUM - SERUM 3.2 mmol/L (3.5-5.1)
[2019-04-12 07:11] LABS: BASOPHILS 0.1 % (0-2); EOSINOPHILS 0 % (0-7); HEMATOCRIT 29.6 % (36.0-48.0); HEMOGLOBIN 9.4 g/dL (12-16); IMMATURE GRANULOCYTES 0.9 % (0-5); LYMPHOCYTES 12.2 % (15-50); MCH 30.9 pg (26.0-34.0); MCHC 31.8 g/dL (31.0-37.0); MCV 97.4 fL (80.0-100.0); MEAN PLATELET VOLUME 9.1 fL (7.4-10.4); MONOCYTES 1.7 % (2-11); NEUTROPHILS 85.1 % (40-80); PLATELET COUNT 729 10x3/uL (130-400); RBC 3.04 10x6/uL (4.00-5.40); RDW 14.7 % (11.5-14.5); WBC 9.5 10x3/uL (4.8-10.8)
[2019-04-12 08:11] VITALS: BP 117/68
--- NOTE | 2019-04-12 09:05 | NUR ---
RESTING IN BED, ABT INFUSING, NO DISTRESS NOTED, CONT TO MONITOR ABD PAIN
[2019-04-12 10:45] VITALS: Ht 157.5 cm; Wt 62.6 kg
[2019-04-12 12:15] VITALS: BP 141/79
[2019-04-12] MEDS ORDERED: CIPRO500 MG PO (13:18)
--- NOTE | 2019-04-12 13:31 | MORECARE ---
CASE MANAGEMENT DISCHARGE SUMMARY PATIENT: KIMBERLEY WEISS UNIT: [id number] ADM DATE: 04/08/19 AGE: 48 : 72 SEX: F ROOM/BED: D.2224 AUTHOR: FRANKLIN SHAFFER PHYSICIAN: REFERRING PHYSICIAN: RICHAR GUPTA MD DATE OF SERVICE: 04/12/19 Discharge Plan Patient Name: KIMBERLEY WEISS [facility] : 1970 Planned Disposition: Home Anticipated Discharge Date: Discharge Date: Expected LOS: Initial Reviewer: [email or web address] Initial Review Date: 04/11/2019 Generated: 04/12/19 2:30 pm DCPIA - Discharge Planning Initial Assessment Updated by [email or web address]: Estefania Lindsey on 04/12/19 1:29 pm * Is the patient Alert and Oriented? Yes * How many steps to enter\exit or inside your home? 5-6/0 * PCP Dr. Brown in [place] * Pharmacy [facility] in [place] (until she can drive), then in [place] * Preadmission Environment Home with Family * ADLs Independent * Equipment None * List name and contact numbers for known caregivers / representatives who currently or will assist patient after discharge: Fareed Weiss - [facility] - [phone] * Verbal permission to speak to the caregivers and representatives has been obtained from the patient. Yes * Community resources currently utilized None * Additional services required to return to the preadmission environment? No * Can the patient safely return to the preadmission environment? Yes * Has this patient been hospitalized within the prior 30 days at any hospital? Yes Patient Name: KIMBERLEY WEISS Page [id number] at 1331 All edits/amendments must be made on the electronic document DICTATION DATE: 04/12/19 133 POLE SETTER: ANNA 04/12/191329 RPT#: [id number] DC DATE: STATUS: ADM IN [facility] [address] [place] [address] END OF REPORT
--- NOTE | 2019-04-12 13:39 | MORECARE ---
CASE MANAGEMENT DISCHARGE SUMMARY PATIENT: KIMBERLEY WEISS UNIT: [id number] ADM DATE: 04/08/19 AGE: 48 : 72 SEX: F ROOM/BED: D.2224 AUTHOR: EDMUND,DOC PHYSICIAN: REFERRING PHYSICIAN: RICHAR GUPTA MD DATE OF SERVICE: 04/12/19 Discharge Plan Patient Name: KIMBERLEY WEISS Facility: [facility]:[place] : 1970 Planned Disposition: Home Anticipated Discharge Date: Discharge Date: Expected LOS: Initial Reviewer: [email or web address] Initial Review Date: 04/11/2019 Generated: 04/12/19 2:39 pm Comments DCP- Discharge Planning Updated by [email or web address]: Estefania Lindsey on 04/12/19 12:[address] Patient Name: KIMBERLEY WEISS Admission Status: ER Accout number: [id number] Admission Date: 04-08-2019 : 1970 Admission Diagnosis: Attending: RICHAR GUPTA Current LOS: 4 Anticipated DC Date: Planned Disposition: Home Primary Insurance: [facility] [employer] Discharge Planning Comments: CM met with patient to complete initial dc planning assessment. CM educated patient on the CM role and verbal consent given by patient to complete assessment. Patient lives at home with her and two adult sons. At discharge she plans on returning home and feels this is a safe discharge. CM discussed the availability of home health and DME needs, she denies needs at this time. She states Kaleb in IR has instructed her on how to flush her drain and the nurse has witnessed her doing the flushes. She states she feels comfortable going home with the drain if Dr. Barton agrees. She states IR has already called the prefilled flushes in to [facility] here in [place]. CM will continue to follow and assist with discharge planning/needs. Salon Coordinator: Estefania Lindsey DCPIA - Discharge Planning Initial Assessment Updated by [email or web address]: Estefania Lindsey on 04/12/19 1:29 pm * Is the patient Alert and Oriented? Yes * How many steps to enter\exit or inside your home? 5-6/0 * PCP Dr. Brown in [place] * Pharmacy [facility] in [place] (until she can drive), then in [place] * Preadmission Environment Home with Family * ADLs Independent * Equipment None * List name and contact numbers for known caregivers / representatives who currently or will assist patient after discharge: Fareed Weiss - spouse - [phone] * Verbal permission to speak to the caregivers and representatives has been obtained from the patient. Yes * Community resources currently utilized None * Additional services required to return to the preadmission environment? No * Can the patient safely return to the preadmission environment? Yes * Has this patient been hospitalized within the prior 30 days at any hospital? Yes Last DP export: 04/12/19 12:31 p Patient Name: KIMBERLEY WEISS Page 22850 at 1339 All edits/amendments must be made on the electronic document DICTATION DATE: 04/12/191337 AIR POLLUTION COMPLIANCE INSPECTOR: ANNA 04/12/191337 RPT#: [id number] DC DATE: STATUS: ADM IN [facility] [address] [place] [address] END OF REPORT
--- NOTE | 2019-04-12 14:08 | MORECARE ---
CASE MANAGEMENT DISCHARGE SUMMARY PATIENT: KIMBERLEY WEISS UNIT: [id number] ADM DATE: 04/08/19 AGE: 48 : 72 SEX: F ROOM/BED: D.2224 AUTHOR: FRANKLIN SHAFFER PHYSICIAN: REFERRING PHYSICIAN: RICHAR GUPTA MD DATE OF SERVICE: 04/12/19 Discharge Plan Patient Name: KIMBERLEY WEISS Facility: [facility]:[place] : 1970 Planned Disposition: Home Anticipated Discharge Date: Discharge Date: Expected LOS: Initial Reviewer: [email or web address] Initial Review Date: 04/11/2019 Generated: 04/12/19 3:07 pm Comments DCP- Discharge Planning Updated by [email or web address]: Estefaniamarzena Lindsey on 04/12/19 12:[address] Patient Name: KIMBERLEY WEISS Encounter No: [id number] : 1970 Primary Insurance: [facility] [employer] Anticipated DC Date: Planned Disposition: Home External Planned Provider: : DCP follow-up note: Patient and family in agreement with discharge plan. No changes to plan. Case management will follow and assist as needed. Estefania Rosalia DCP- Discharge Planning Updated by [email or web address]: Estefania Lindsey on 04/12/19 12:[address] Patient Name: KIMBERLEY WEISS Admission Status: ER Accout number: [id number] Admission Date: 04-08-2019 : 1970 Admission Diagnosis: Attending: RICHAR GUPTA Current LOS: 4 Anticipated DC Date: Planned Disposition: Home Primary Insurance: [employer] Discharge Planning Comments: CM met with patient to complete initial dc planning assessment. CM educated patient on the CM role and verbal consent given by patient to complete assessment. Patient lives at home with her and two adult sons. At discharge she plans on returning home and feels this is a safe discharge. CM discussed the availability of home health and DME needs, she denies needs at this time. She states Kaleb in IR has instructed her on how to flush her drain and the nurse has witnessed her doing the flushes. She states she feels comfortable going home with the drain if Dr. Barton agrees. She states IR has already called the prefilled flushes in to [facility] here in [place]. CM will continue to follow and assist with discharge planning/needs. Front Line Leader: Estefania Lindsey DCPIA - Discharge Planning Initial Assessment Updated by [email or web address]: Estefania Lindsey on 04/12/19 1:29 pm * Is the patient Alert and Oriented? Yes * How many steps to enter\exit or inside your home? 5-6/0 * PCP Dr. Brown in [place] * Pharmacy [facility] in [place] (until she can drive), then in [place] * Preadmission Environment Home with Family * ADLs Independent * Equipment None * List name and contact numbers for known caregivers / representatives who currently or will assist patient after discharge: Fareed Weiss - [facility] - [phone] * Verbal permission to speak to the caregivers and representatives has been obtained from the patient. Yes * Community resources currently utilized None * Additional services required to return to the preadmission environment? No * Can the patient safely return to the preadmission environment? Yes * Has this patient been hospitalized within the prior 30 days at any hospital? Yes Last DP export: 04/12/19 12:39 p Patient Name: KIMBERLEY WEISS Page 52079 at 1408 All edits/amendments must be made on the electronic document DICTATION DATE: 04/12/191406 FOLDER MACHINE OPERATOR: ANNA 04/12/191406 RPT#: [id number] DC DATE: STATUS: ADM IN [facility] [address] [place] [address] END OF REPORT
--- NOTE | 2019-04-12 16:41 | NUR ---
TAKEN TO PRIVATE VEHICLE PER W/C, INSTRUCTED ON FLUSHING OF DRAINAGE BAG, PROVIDED RX FOR ABT AND PAIN, IV REMOVED, TIP INTACT
[2019-04-15 17:08] LABS: AEROBE ID Final report (())
--- NOTE | 2019-04-16 16:21 | MORECARE ---
CASE MANAGEMENT DISCHARGE SUMMARY PATIENT: KIMBERLEY WEISS UNIT: [id number] ADM DATE: 04/08/19 AGE: 48 : 72 SEX: F ROOM/BED: D.2224 AUTHOR: FRANKLIN SHAFFER PHYSICIAN: REFERRING PHYSICIAN: RICHAR GUPTA MD DATE OF SERVICE: 04/16/19 Discharge Plan Patient Name: KIMBERLEY WEISS Facility: [facility]:[place] : 1970 Planned Disposition: Home Anticipated Discharge Date: Discharge Date: 04/12/2019 Expected LOS: Initial Reviewer: [email or web address] Initial Review Date: 04/11/2019 Generated: 04/16/19 5:21 pm Comments DCP- Discharge Planning Updated by [email or web address]: Estefania Lindsey on 04/12/19 12:[address] Patient Name: KIMBERLEY WEISS Encounter No: [id number] : 1970 Primary Insurance: [employer] [facility] COMM[employer]CIAL [employer]IMARY Anticipated DC Date: Planned Disposition: Home External Planned Provider: : DCP follow-up note: Patient and family in agreement with discharge plan. No changes to plan. Case management will follow and assist as needed. Estefania Rosalia DCP- Discharge Planning Updated by [email or web address]: Estefania Lindsey on 04/12/19 12:[address] Patient Name: KIMBERLEY WEISS Admission Status: ER Accout number: [id number] Admission Date: 04-08-2019 : 1970 Admission Diagnosis: Attending: RICHAR GUPTA Current LOS: 4 Anticipated DC Date: Planned Disposition: Home Primary Insurance: [facility] [employer] Discharge Planning Comments: CM met with patient to complete initial dc planning assessment. CM educated patient on the CM role and verbal consent given by patient to complete assessment. Patient lives at home with her and two adult sons. At discharge she plans on returning home and feels this is a safe discharge. CM discussed the availability of home health and DME needs, she denies needs at this time. She states Kaleb in IR has instructed her on how to flush her drain and the nurse has witnessed her doing the flushes. She states she feels comfortable going home with the drain if Dr. [place] agrees. She states IR has already called the prefilled flushes in to [facility] here in [place]. CM will continue to follow and assist with discharge planning/needs. Cash Grain Farmer: Estefania Lindsey DCPIA - Discharge Planning Initial Assessment Updated by [email or web address]: Estefania Rosalia on 04/12/19 1:29 pm * Is the patient Alert and Oriented? Yes * How many steps to enter\exit or inside your home? 5-6/0 * PCP Dr. Brown in [place] * Pharmacy [facility] in [place] (until she can drive), then in [place] * Preadmission Environment Home with Family * ADLs Independent * Equipment None * List name and contact numbers for known caregivers / representatives who currently or will assist patient after discharge: Fareed Weiss - spouse - [phone] * Verbal permission to speak to the caregivers and representatives has been obtained from the patient. Yes * Community resources currently utilized None * Additional services required to return to the preadmission environment? No * Can the patient safely return to the preadmission environment? Yes * Has this patient been hospitalized within the prior 30 days at any hospital? Yes Last DP export: 04/12/19 1:08 p Patient Name: KIMBERLEY WEISS Page [phone] at 1621 All edits/amendments must be made on the electronic document DICTATION DATE: 04/16/191620 COMMUNICATIONS PROFESSIONAL: ANNA 04/16/191620 RPT#: [id number] DC DATE:04/12/19 STATUS: DIS IN [facility] [address] [place] [address] END OF REPORT
== END 2019-04-12 16:40 | disposition home or self-care (01) | DRG 862 ==
LOC: D.ER 15:48 → D.MS 19:27
PROVIDERS: Family Medicine; General Practice; ADMIT Surgery; ATTEND Surgery
PROC: 0W9H30Z Drainage of Retroperitoneum with Drainage Device, Percutaneous Approach (ICD-10-PCS; principal; 2019-04-09 16:00)
DX: K68.11 Postprocedural retroperitoneal abscess (principal); K65.9 Peritonitis, unspecified; K91.89 Other postprocedural complications and disorders of digestive system; I10 Essential (primary) hypertension; K21.9 Gastro-esophageal reflux disease without esophagitis; E07.9 Disorder of thyroid, unspecified

== ENCOUNTER → 2019-04-25 10:49 | Outpatient (CLI) | payer OTHER ==
[2019-04-12 10:45] VITALS: BMI 25.2
[~2019-04-25 10:49] MED LIST changes: +CIPRO500 MG PO
== END | disposition home or self-care (01) ==
LOC: D.CT 09:30
PROVIDERS: ATTEND Surgery
DX: K65.1 Peritoneal abscess (principal); K57.32 Diverticulitis of large intestine without perforation or abscess without bleeding